=== PATIENT | female | born 1945 | race Caucasian/White ===

== ENCOUNTER 2017-10-02 14:52 | Outpatient (CLI) | payer MEDICARE | END 2017-10-02 14:53 | disposition home or self-care (01) | LOC: BICMAMMO 14:52 | PROVIDERS: ATTEND Internal Medicine Hematology & Oncology | DX: Z08 Encounter for follow-up examination after completed treatment for malignant neoplasm (principal); N64.89 Other specified disorders of breast; N63.20 Unspecified lump in the left breast, unspecified quadrant; N63.10 Unspecified lump in the right breast, unspecified quadrant; Z85.3 Personal history of malignant neoplasm of breast | CPT/HCPCS: 77066; G0279 ==

== ENCOUNTER 2018-03-28 04:30 | Observation (INO) | payer MEDICARE, OTHER ==
[2018-03-28 06:09] LABS: Troponin I Less than 0.010 ng/mL (< 0.028)
[2018-03-28] MEDS ORDERED: Acetaminophen 500 MG TAB ONE (06:10)
[2018-03-28 07:04] VITALS: BMI 38.5
--- NOTE | 2018-03-28 08:25 | CT ---
PRELIMINARY REPORT/[facility]/EMERGENTY AFTER-HOURS PROCEDURE CT Angiography Chest With Intravenous Contrast EXAM DATE/TIME: 03/28/2018 5:20 AM CLINICAL HISTORY: 73 years old, female; Pain; Chest pain; Patient HX: Patient presents for evaluation of chest pain TECHNIQUE: Axial computed tomographic angiography images of the chest with intravenous contrast using CT angiogr aphy protocol. MIP reconstructed images were created and reviewed. COMPARISON: No relevant prior studies available. FINDINGS: Pulmonary arteries: The ascending aorta at the level of the right pulmonary artery measures 3 cm. The main pulmonary artery measures 2.3 cm. No evidence of acute pulmonary embolism up to the subsegmenta l level. Aorta: Normal. No aortic aneurysm. No aortic dissection. Lungs: Mild atelectasis is seen in both lung bases. A nodule measuring 3 mm is seen in the right lung base. A nodule measuring 2 mm is seen in the right lung base. Several nodules the largest measuring 5 mm are seen in the right lung base. Several nodules are noted in the left upper lobe the largest me asuring 4 mm. Pleural space: Normal. No pneumothorax. No pleural effusion. Heart: Coronary artery calcifications are noted. Bones/joints: Moderate degenerative changes affect the spine. Bilateral shoulder arthroplasty changes are seen. Soft tissues: Unremarkable. Lymph nodes: Unremarkable. No enlarged lymph nodes. Gallbladder and bile ducts: Cholecystectomy clips are seen. Kidneys and ureters: There is a simple cyst in the lower pole of the right kidney measuring 1.3 cm. IMPRESSION: 1. No evidence of acute pulmonary embolism upto the subsegmental level. 2. Several nodules in both lungs the largest measuring 5 mm. No followup study is recommended if the patient is at low risk. An optional follow up study can be obtained in 12 months if the patient is at high risk. Thank you for allowing us to participate in the care of your patient. Dictated and Authenticated by: Gladis Brady MD 03/28/2018 6:51 AM Central Time ([place] & [place]) FINAL REPORT CT PULMONARY ANGIOGRAM WITH IV CONTRAST AND 3D POSTPROCESSING: I agree with the preliminary report given by Dr. Gladis Brady of [facility]. POS: [facility]
[2018-03-28 08:58] LABS: Troponin I 0.012 ng/mL (< 0.028)
[2018-03-28] MEDS ORDERED: Ondansetron PF 4 MG/2 ML Vial IVP PRN (10:25)
[2018-03-28] MEDS ORDERED: Lisinopril 2.5 MG TAB PO SCH (10:45)
[2018-03-28] MEDS: Acetaminophen 325 MG TAB PO PRN ×2 (10:53→21:36)
--- NOTE | 2018-03-28 11:56 | HP ---
DATE OF ADMISSION: 03/28/2018 PRIMARY CARE PHYSICIAN: Dr. Nuno CHIEF COMPLAINT: Chest pain. HISTORY OF PRESENT ILLNESS: Ms. Grove is a pleasant 73-year-old female with past medical history of hypertension, hyperlipidemia and breast cancer. She had taken herself to the ER in [place] and was later transferred via EMS to [facility] for further workup for her chest pain symptoms. She was also complaining of some shortness of breath that had started late last night, sh e was awoken in her sleep around midnight and pain lasted until about 2:00 a.m. She denies any nausea , vomiting or diarrhea. No abdominal pain. She was found to have an initial elevated blood pressure of 182/96. She was given nitro sublingual and aspirin 325 mg; however, showed little improvement of her chest pain. She states symptoms came on suddenly and chest pain does radiate to left scapula. S he denies any cough, fever, or chills. No recent travel and no other symptoms at this time. PAST MEDICAL HISTORY: She reports history of hyperlipidemia, hypertension and breast cancer. PAST SURGICAL HISTORY: Bilateral knee replacements, bilateral shoulder replacements, and lumpectomy right breast. PAST PSYCHIATRIC HISTORY: Does include history of anxiety and depression. SOCIAL HISTORY: She denies any alcohol use, drug use or smoking history. FAMILY HISTORY: Denies any family related history. REVIEW OF SYSTEMS: Reports left-sided chest pain and shortness of breath, chest pain does refer to l eft scapula, reports elevated blood pressure along with headache. All other review of systems review ed and negative at this time unless stated in the H&P. ALLERGIES: No known drug allergies noted. CURRENT HOME MEDICATIONS: 1. Aspirin 81 mg daily. 2. Lisinopril 2.5 mg daily. 3. Atorvastatin 10 mg daily. 4. Anastrozole 1 mg once daily. PHYSICAL EXAMINATION: VITAL SIGNS: BP 180/79, pulse 77, respirations 16, temperature 98.6, O2 saturations 94% on room air. GENERAL: The patient is alert and oriented x3 with mild acute distress due to chest pain. HEAD: Normocephalic, atraumatic. EYES: Pupils are round and reactive to light. Extraocular muscles intact. ENT: Oropharynx is within normal limits. Moist mucous membranes. No oral lesions noted. No pharyn geal erythema or exudates. NECK: Supple, no JVD, no thyromegaly, no carotid bruit. LUNGS: Clear to auscultation bilaterally without wheezes, rhonchi, or rales. CARDIOVASCULAR: Positive S1, S2, regular rate and rhythm, left-sided chest pain, nonreproducible. ABDOMEN: Soft, nontender, nondistended. Bowel sounds present. BACK: Full range of motion, no CVA tenderness. EXTREMITIES: Strength 5+ bilaterally upper and lower extremities. Range of motion normal. No edema noted. NEUROLOGIC: Moves all 4 limbs. No focal deficits noted. Speech is normal. PSYCHIATRIC: Normal mood and affect. LABORATORY DATA AND DIAGNOSTIC IMAGING: WBC 6.9, RBC 4.53, hemoglobin 14.5. PT 12.8, INR 0.9, PTT 2 3.9, sodium 142, potassium 4.2, creatinine 0.99. Troponin less than 0.10 X1. BNP 124, lipase 20. T SH 1.43. Glucose 153. D-dimer 0.47. However, CTA of chest showed no acute PE. ASSESSMENT AND PLAN: 1. Chest pain, etiology uncertain. We will rule out cardiogenic causes with serial troponin, negati ve x1. We will obtain stress test and echocardiogram. We will continue on home medications includin g lisinopril for blood pressure. 2. Hypertension, continue home lisinopril 2.5 mg daily, add IV hydralazine 10 mg as needed for hyper tension. Monitor vital signs and symptoms closely with further management pending the patient's prog ress. 3. Hyperlipidemia. Continue home dose of atorvastatin. 4. History of breast cancer, invasive micropapillary carcinoma, continue symptomatic treatment. The patient is to follow up with primary oncologist, she has a history of lumpectomy. 5. Deep venous thrombosis prophylaxis with Lovenox daily. 6. Gastrointestinal prophylaxis with Protonix 40 mg p.o. daily. 7. Code status. The patient will remain FULL CODE. DISPOSITION: The patient will be admitted under observation status and will undergo workup for chest pain, rule out. Further disposition pending patient progress and workup results.
[2018-03-28] MEDS ORDERED: ISOVUE-370 76%-LOCM 1 ML ONE (13:27)
--- NOTE | 2018-03-28 14:35 | NM ---
CARDIAC SPECT: CLINICAL HISTORY: 73-year-old female with chest pain, hypertension, and dyslipidemia. TECHNIQUE: A myocardial perfusion scan was performed using the single isotope one day protocol with technetium-9 9m sestamibi. 9 mCi were injected intravenously for the rest exam followed by 29 mCi for the stress e xam. Pharmacologic stress with Adenosine was monitored and interpreted by Dr. Lehman. FINDINGS: Homogeneous tracer distribution is seen in the myocardial segments on stress and rest images without fixed or reversible defects. GATED SPECT LVEF: 64%. WALL MOTION EXAM: Normal. IMPRESSION: Normal exam. POS: [facility]
[2018-03-28] MEDS: hydrALAZINE 20 MG/ML VIAL SLOW IVP PRN (17:19)
[2018-03-28] MEDS ORDERED: Atorvastatin Calcium 10 MG TAB PO SCH (21:00)
[2018-03-29 04:33] LABS: #Basophils 0.1 thou/uL (0.0-0.2); #Eosinphils 0.2 thou/uL (0.0-0.7); #Lymphocytes 2.2 thou/uL (1.20-3.40); #Monocytes 0.5 thou/uL (0.11-0.59); #Neutrophils 3.1 thou/uL (1.40-6.50); %Basophils 1.4 % (0.0-1.0); %Eosinophils 3.3 % (0.0-10.0); %Lymphocytes 35.9 % (21.0-51.0); %Monocytes 7.7 % (0.0-10.0); %Neutrophils 51.7 % (42.0-75.0); Hemoglobin 14.5 g/dL (12.0-16.0); Mean Corpuscular HGB CONC 33.5 g/dL (32.0-36.0); Mean Corpuscular Hemoglobin 32.7 pg (27.0-31.0); Mean Corpuscular Volume 97.8 fL (78.0-98.0); Mean Platelet Volume 8.7 fL (7.4-10.4); Platelet Count 245 thou/uL (130-400); RBC Distribution Width 11.7 % (11.5-14.5); Red Blood Cell (RBC) Count 4.43 mill/uL (4.20-5.40)
[2018-03-29 04:50] LABS: Anion Gap 14 mmol/L (10-20); BUN (Urea Nitrogen) Less than 4 mg/dL (9.8-20.1); Calc. Creatinine Clearance 149 mL/min (70-130); Carbon Dioxide 24 mmol/L (23-31); Chloride 106 mmol/L (98-107); Estimated GFR-MDRD Greater than 90; Glucose 157 mg/dL (83-110); Potassium 3.8 mmol/L (3.5-5.1); Sodium 140 mmol/L (136-145)
[2018-03-29] MEDS: hydrALAZINE 20 MG/ML VIAL SLOW IVP PRN (05:24)
[2018-03-29] MEDS: Acetaminophen 325 MG TAB PO PRN (06:20)
[2018-03-29 08:09] VITALS: BP 145/67; TEMP 98
[2018-03-29] MEDS ORDERED: Amlodipine 5 MG TAB PO SCH (09:00)
[2018-03-29] MEDS ORDERED: Lisinopril 5 MG TAB PO SCH (09:00)
[2018-03-29] MEDS ORDERED: Enoxaparin Sodium 40 MG/0.4 ML SYRINGE SC SCH (09:00)
[2018-03-29] MEDS ORDERED: Lisinopril 2.5 MG TAB PO SCH (09:00)
--- NOTE | 2018-03-29 10:42 | DIS ---
DATE OF ADMISSION: 03/28/2018 DATE OF DISCHARGE: 03/29/2018 DISCHARGE DIAGNOSES: 1. Chest pain, noncardiac, resolved. 2. Hypertension, stable. 3. Hyperlipidemia, stable. 4. History of breast cancer, stable. CONSULTATIONS: None. PERTINENT LABORATORY AND DIAGNOSTIC FINDINGS: WBC 6.0, RBC 4.43, hemoglobin 14.5. Sodium 140, potas sium 3.8, creatinine 0.60, glucose 157. Troponin less than 0.010 x2. Hemoglobin A1c 6.2. BNP 124. TSH 1.43. Lipid panel unremarkable. PT 12.8, INR 0.9, PTT 23.9. D-dimer 0.47. CT of the chest showed no evidence of acute pulmonary embolism; however, did show several nodules in both lungs with the largest measuring 5 mm, it was recommended the patient obtain repeat imaging in 1 2 months for recheck. A stress test was normal. Echocardiogram showed left ventricular ejection fraction of 60-65% with gr ann-marie I diastolic dysfunction. HOSPITAL COURSE: Ms. Grove is a pleasant 73-year-old female who was seen in [place] ED for her com plaints of chest pain, she was transported to [facility] via EMS. During singh sit, she had received a dose of aspirin 325 mg along with sublingual nitro. She had reported very li ttle improvement of her symptoms of chest pain. She has a history of hypertension, hyperlipidemia an d breast cancer. She had stated that her symptoms came on suddenly while she was sleeping and woke h er out of a deep sleep. She also stated she had mild symptoms of shortness of breath and headache. In the emergency department, it was found that the patient's blood pressure was elevated at 182/96, s he was restarted on her home medications which included aspirin 81 mg daily, lisinopril 2.5 mg daily, and Lipitor 10 mg daily. She was admitted under observation for chest pain rule out. Her D-dimer w as found to be slightly elevated at 0.47, however, CTA chest revealed no evidence of pulmonary emboli sm at that time. It did, however, show multiple nodules in both lungs with the largest measuring und er 5 mm, it was recommended that patient have a followup study in approximately 12 months. She also underwent a stress test which was found to be normal along with an echocardiogram which displayed an EF of 60-65% with grade I diastolic dysfunction. With the patient's elevated blood pressure, IV hydr alazine 10 mg was added as needed. She had tolerated this well, home dose of lisinopril was increase d to 5 mg daily, blood pressure did improve to 176/76, therefore, amlodipine 2.5 mg was added. Blood pressure did improve to 145/67 along with her symptoms of chest pain, shortness of breath and headac he. She was continued on lisinopril 5 mg along with amlodipine 2.5 mg daily and tolerating well for the remainder of hospital course. She was seen and examined prior to discharge. She had denied any symptoms of chest pain, shortness of breath or abdominal pain. Blood pressure remained stable at 145 /67, she was instructed to continue new dose of lisinopril 5 mg daily, along with amlodipine 2.5 mg d aily. She was instructed to follow up with her primary care physician, Dr. Nuno, in 1-2 weeks for further management of her blood pressure. She had verbalized her understanding and was found to be medically stable for discharge 03/29/2018. DISCHARGE MEDICATIONS: 1. Lisinopril 5 mg daily. 2. Amlodipine 2.5 mg daily. 3. Atorvastatin 10 mg daily. 4. Aspirin 81 mg daily. 5. Anastrozole 1 mg p.o. daily. FOLLOWUP: The patient is to follow up with her PCP, Dr. Nuno in 1-2 weeks. CONDITION ON DISCHARGE: Stable. ACTIVITY: No restrictions. DIET: Heart healthy. CODE STATUS: FULL CODE. DISPOSITION: Home on 03/29/2018.
== END 2018-03-29 11:52 | disposition home or self-care (01) ==
LOC: ERS 04:30 → 2SW 04:34
PROVIDERS: ADMIT Internal Medicine; ATTEND Internal Medicine
DX: R07.89 Other chest pain (principal); I10 Essential (primary) hypertension; E78.5 Hyperlipidemia, unspecified; Z85.3 Personal history of malignant neoplasm of breast; Z79.811 Long term (current) use of aromatase inhibitors; Z79.82 Long term (current) use of aspirin; Z79.899 Other long term (current) drug therapy; Z96.653 Presence of artificial knee joint, bilateral; Z96.611 Presence of right artificial shoulder joint; Z96.612 Presence of left artificial shoulder joint
CPT/HCPCS: 71275; 78452; 80048; 84484; 85025; 93017; 93306; 96372; 96374; 96376; 99285; A9500; G0378 ×2; 36415; J0153; J0360; J1650

== ENCOUNTER 2018-04-09 14:02 | Outpatient (CLI) | payer MEDICARE | END 2018-04-09 14:03 | disposition home or self-care (01) | LOC: BICMAMMO 14:02 | PROVIDERS: ATTEND Family Medicine | DX: R92.8 Other abnormal and inconclusive findings on diagnostic imaging of breast (principal); N64.89 Other specified disorders of breast; Z85.3 Personal history of malignant neoplasm of breast | CPT/HCPCS: 77065; G0279 ==

== ENCOUNTER 2018-10-15 14:30 | Outpatient (CLI) | payer MEDICARE ==
--- NOTE | 2018-10-15 15:02 | MMO ---
Bilateral MAMMO Bilat Diag [facility]. CLINICAL HISTORY: Patient is 73 years old and is seen for diagnostic exam. The patient has no family history of breast cancer. The patient has a history of Lumpectomy procedure revealed invasive moderately differntiated ductal carcinoma with micropapillary features in the right breast in Sep, 2016 and Ultrasound Guided Core Biopsy procedure revealed invasive ductal right breast carcinoma in Sep, 2016. The patient has a history of right Ultrasound Guided Core Biopsy in Sep, 2016. VIEWS: The views performed were: bilateral craniocaudal with tomosynthesis; bilateral mediolateral oblique with tomosynthesis; and bilateral mediolateral. FILMS COMPARED: The present examination has been compared to prior imaging studies performed at [facility] on 09/07/2016, 09/13/2016, 10/02/2017 and 04/09/2018. MAMMOGRAM FINDINGS: There are scattered fibroglandular densities. Finding 1: There is a post-surgical scar seen in the right breast. Finding 2: There are stable benign appearing densities seen in both breasts. Finding 3: There are stable benign appearing calcifications seen in both breasts. There are also vascular calcifications. IMPRESSION: FINDING 1: POST-SURGICAL SCAR IN THE RIGHT BREAST IS BENIGN. FINDING 2: STABLE BENIGN APPEARING DENSITIES IN BOTH BREASTS ARE BENIGN. FINDING 3: STABLE CALCIFICATIONS IN BOTH BREASTS ARE BENIGN. A ROUTINE FOLLOW-UP MAMMOGRAM IN 1 YEAR IS RECOMMENDED. THE RESULTS OF THIS EXAM WERE SENT TO THE PATIENT. ACR BI-RADS Category 2 - Benign finding MAMMOGRAPHY NOTE: 1. A negative mammogram report should not delay a biopsy if a dominant of clinically suspicious mass is present. 2. Approximately 10% to 15% of breast cancers are not detected by mammography. 3. Adenosis and dense breasts may obscure an underlying neoplasm.
== END 2018-10-15 14:31 | disposition home or self-care (01) ==
LOC: BICMAMMO 14:30
PROVIDERS: ATTEND Internal Medicine Hematology & Oncology
DX: Z08 Encounter for follow-up examination after completed treatment for malignant neoplasm (principal); Z85.3 Personal history of malignant neoplasm of breast; Z98.890 Other specified postprocedural states
CPT/HCPCS: 77066; G0279

== ENCOUNTER 2018-11-07 13:46 | Outpatient (CLI) | payer MEDICARE ==
--- NOTE | 2018-11-07 14:14 | BD ---
EXAM: DEXA bone density examination HISTORY: 73-year-old postmenopausal female for screening COMPARISON: None FINDINGS: L1--bone mineral density 1.201 g/sq cm; T score 1.9 L2--bone mineral density 1.286 g/sq cm; T score 2.3 L3--bone mineral density 1.388 g/sq cm; T score 2.8 L4--bone mineral density 1.396 g/sq cm; T score 3.0 Total L1-L4--bone mineral density 1.319 g/sq cm; T score 2.5 Left femoral neck--bone mineral density0.897; T score 0.4 Total proximal left femur--bone mineral density 1.145; T score 1.7 IMPRESSION: Normal bone mineral density.
== END 2018-11-07 13:47 | disposition home or self-care (01) ==
LOC: BICMAMMO 13:46
PROVIDERS: ATTEND Internal Medicine Hematology & Oncology
DX: Z13.820 Encounter for screening for osteoporosis (principal); C50.111 Malignant neoplasm of central portion of right female breast; T38.6X5A Adverse effect of antigonadotrophins, antiestrogens, antiandrogens, not elsewhere classified, initial encounter
CPT/HCPCS: 77080

== ENCOUNTER 2019-12-08 14:16 | Outpatient (CLI) | payer MEDICARE ==
--- NOTE | 2019-12-08 15:47 | MMO ---
Bilateral MAMMO Bilat Diag [facility]. CLINICAL HISTORY: Patient is 74 years old and is seen for diagnostic exam. The patient has no family history of breast cancer. The patient has a history of lumpectomy procedure revealed invasive moderately differntiated ductal carcinoma with micropapillary features in the right breast in Sep, 2016 and Ultrasound guided core biopsy procedure revealed invasive ductal right breast carcinoma in Sep, 2016. The patient has a history of right Ultrasound Guided Core Biopsy in Sep, 2016 and right Lumpectomy in 2017 - malignant. VIEWS: The views performed were: bilateral craniocaudal with tomosynthesis; bilateral mediolateral oblique with tomosynthesis; and bilateral mediolateral with tomosynthesis. FILMS COMPARED: The present examination has been compared to prior imaging studies performed at [facility] on 09/13/2016, 10/02/2017, 04/09/2018 and 10/15/2018. This study has been interpreted with the assistance of computer-aided detection. MAMMOGRAM FINDINGS: There are scattered fibroglandular densities. Benign calcifications are noted bilaterally. Nodularity is stable. There are stable right post-operative changes. There are no suspicious masses, suspicious calcifications, or new areas of architectural distortion. IMPRESSION: THERE IS NO MAMMOGRAPHIC EVIDENCE OF MALIGNANCY. A ROUTINE FOLLOW-UP MAMMOGRAM IN 1 YEAR IS RECOMMENDED. THE RESULTS OF THIS EXAM WERE SENT TO THE PATIENT. ACR BI-RADS Category 2 - Benign finding MAMMOGRAPHY NOTE: 1. A negative mammogram report should not delay a biopsy if a dominant of clinically suspicious mass is present. 2. Approximately 10% to 15% of breast cancers are not detected by mammography. 3. Adenosis and dense breasts may obscure an underlying neoplasm. Reported by: JEANCARLOS SAN MD Electonically Signed: [id number]
== END 2019-12-08 14:17 | disposition home or self-care (01) ==
LOC: BICMAMMO 14:16
PROVIDERS: ATTEND Internal Medicine Hematology & Oncology
DX: Z08 Encounter for follow-up examination after completed treatment for malignant neoplasm (principal); Z85.3 Personal history of malignant neoplasm of breast
CPT/HCPCS: 77066; G0279

== ENCOUNTER 2020-02-17 11:40 | Outpatient (CLI) | payer MEDICARE ==
[~2020-02-17 11:40] MED LIST: Magnevist 469MG/ML 20 ML VIAL ONE
--- NOTE | 2020-02-17 13:59 | MRI ---
Exam: Lumbar spine MRI with and without contrast HISTORY: Breast cancer. Repeated falls. Difficulty walking and standing. COMPARISON: None. FINDINGS: Overall there is appropriate T1 marrow signal intensity of the lumbar vertebra. Lumbar spine vertebra l body heights are maintained. There is no fracture. There are type II Modic changes at L1-L2 and L2-L3. Associated anterior osteophytes. There are type I Modic changes at L3-L4 with associated enhan cement of the endplate. There is no abnormal enhancement with regards to the associated disc space. There is no abnormal enhancement of the paraspinal muscles or solid organs. There is a cyst in the up per pole of the right kidney. Conus medullaris terminates at the upper aspect of L1. There is rightward curvature of the lumbar spine. T12-L1: Desiccation with mild loss of disc space height. Broad-based disc bulge abuts the thecal sac. No significant central canal stenosis. Patent bilateral neural foramina. L1-L2: Desiccation with moderate loss of disc space height. Broad-based disc bulge results in moderat e central canal stenosis. Mild right and moderate left neural foraminal narrowing. L2-L3: Disc desiccation with severe loss of disc space height. Broad-based disc bulge, ligamentum fla vum thickening and facet hypertrophy result in severe central canal stenosis. Moderate to severe right and moderate to severe left neural foraminal narrowing. L3-L4: Disc desiccation with moderate loss of disc space height. Broad-based disc bulge, ligamentum f lavum thickening and facet hypertrophy result in severe central canal stenosis. There is fluid in both facet joints. Moderate to severe right and left neural foraminal narrowing. L4-L5: Disc desiccation without significant loss of disc space height. Broad-based disc bulge, ligame ntum flavum thickening and facet hypertrophy result in mild stenosis of the thecal sac. Partial obscuration of the traversing right L5 nerve root secondary to narrowing of the subarticular zone fro m disc material and posterior element hypertrophy. Moderate to severe right and [id number] left neural foraminal narrowing. L5-S1: Disc desiccation without significant loss of disc space height. Broad-based disc bulge. No sig nificant central canal stenosis. Bilateral facet hypertrophy. Moderate to severe bilateral foraminal narrowing due to disc material and posterior element hypertrophy. Postcontrast images do not demonstrate any abnormal enhancement of the vertebral bodies. No abnormal enhancement within the thecal sac including the cauda equina and conus medullaris. IMPRESSION: 1. Extensive degenerative changes of the lumbar spine as described above. There are type I Modic lu ges and type II Modic changes at multiple disc spaces. 2. Severe central canal stenosis at L3-L4 and L4-L5. 3. Significant multilevel neural foraminal narrowing as detailed above. 4. No MR evidence of osseous metastases or abnormal enhancement within the thecal sac. Transcribed Date/Time: 02/17/2020 2:20 PM
== END 2020-02-17 11:41 | disposition home or self-care (01) ==
LOC: BICMRI 11:40
PROVIDERS: ATTEND Internal Medicine Hematology & Oncology
DX: R26.2 Difficulty in walking, not elsewhere classified (principal); C50.111 Malignant neoplasm of central portion of right female breast; R29.6 Repeated falls; R29.898 Other symptoms and signs involving the musculoskeletal system; M47.816 Spondylosis without myelopathy or radiculopathy, lumbar region; M48.061 Spinal stenosis, lumbar region without neurogenic claudication
CPT/HCPCS: 72158; 82565; A9579

== ENCOUNTER 2020-05-04 06:34 | Outpatient (CLI) | payer MEDICARE ==
[2020-05-04 12:23] LABS: Hemoglobin 13.9 g/dL (12.0-16.0); Mean Platelet Volume 10.9 fl (7.4-10.4); Platelet Count 266 10x3/uL (130-400); RBC Distribution Width 12.1 % (11.5-14.5); Red Blood Cell (RBC) Count 4.34 10x6/uL (3.90-5.20); White Blood Cell (WBC) Count 7.8 10x3/uL (4.5-11.0)
[2020-05-04 12:37] LABS: PTT 22.8 sec (22.0-33.0); Prothrombin Time 10.8 sec (9.5-12.1)
[2020-05-04 21:56] LABS: SARS-CoV-2 MS2 Positive; SARS-CoV-2 N Gene Negative; SARS-CoV-2 S Gene Negative; SARS-CoV-2 by NAA Not Detected (NotDetected); SARS-CoV-2 orf1ab Negative
== END 2020-05-04 06:35 | disposition home or self-care (01) ==
LOC: LABBT 06:34
PROVIDERS: ATTEND Neurological Surgery
DX: Z01.812 Encounter for preprocedural laboratory examination (principal); M48.57XA Collapsed vertebra, not elsewhere classified, lumbosacral region, initial encounter for fracture; M48.07 Spinal stenosis, lumbosacral region; Z20.828 Contact with and (suspected) exposure to other viral communicable diseases
CPT/HCPCS: 85027; 85610; 85730; U0003; 87635

== ENCOUNTER 2020-05-04 11:15 | Inpatient (IN) | payer MEDICARE ==
--- NOTE | 2020-05-05 22:05 | HP ---
REASON FOR H AND P: Surgery on 05/07/2020. Case #[id number]. CHIEF COMPLAINT: Lower back and bilateral leg pain. HISTORY OF PRESENT ILLNESS: Perfecto is a 75-year-old female with one year of worsening leg symptoms. Pain, weakness, and paresthesias radiating to her bilateral (left greater than right) gluteal muscles, posterior thighs, feet, and all of her toes. She has to sleep on her stomach because the pain is so bad. She had 2 sessions of physical therapy with no lasting relief. Now she has to use a walker to help offload so she could walk further. She denies bladder or bowel dysfunction. REVIEW OF SYSTEMS: CONSTITUTIONAL: Patient denies fever, chills. ENT: Denies change in vision or hearing. CARDIAC: Denies chest pain, shortness of breath, diaphoresis. PULMONARY: Denies shortness of breath, cough, hemoptysis. GASTROINTESTINAL: Denies fecal incontinence, abdominal pain, nausea, vomiting, diarrhea, change in stool formation and consistency. GENITOURINARY: Denies urinary incontinence, trouble with urination, frequency of urination, bloody urine. SKIN: Denies skin rash, bruising, bleeding, skin masses. MUSCULOSKELETAL: As per history of present illness. NEUROLOGICAL: As per history of present illness. PSYCHOLOGICAL: As per history of present illness. PAST MEDICAL HISTORY: Hypertension, arthritis, high cholesterol, depression, right breast cancer (invasive ductal cancer 1.1 cm, margins negative, 0/1 nodes, ER/TX, HER-2/emeka negative). PAST SURGICAL HISTORY: Carpal tunnel, gallbladder, hysterectomy, shoulder replacement right in 2010, right TKR 02/05/2012, left reverse total shoulder 02/03/2014, left total knee replacement 10/05/2015, right breast lumpectomy. HOSPITALIZATIONS: As above surgeries. FAMILY HISTORY: Father of cancer. Mother of diabetes. SOCIAL HISTORY: Nonsmoker. Occasionally drinks wine. Denies illicit drug use. MEDICATIONS: 1. Aspirin 81 mg. 2. Lisinopril 5 mg. 3. Atorvastatin 10 mg. 4. Baby aspirin 81 mg. 5. Arimidex 1 mg. 6. Amlodipine 2.5 mg. ALLERGIES: NO KNOWN DRUG ALLERGIES. PHYSICAL EXAMINATION: VITALS: Weight 231 pounds. Height 68 inches. BMI 35.12. HEENT: Pupils are equal. Extraocular movements are intact. NECK: Soft, supple. No masses are noted. Range of motion is intact and nonpainful. NEUROLOGICAL: Awake, alert, and oriented x3. Memory, attention, fund of knowledge normal. Cranial nerves are grossly intact. Motor exam, diffuse weakness in the anterior tib affected on bilateral sides. Sensory exam, stocking distribution. Reflex exam, hypoactive, symmetric. IMAGING DATA: MRI of the L-spine, severe stenosis of L2-3, L3-4. Foraminal collapse at L5-S1. L4-5 foraminal stenosis. X-ray of the L-spine, flexion and extension stable. ASSESSMENT: 1. Spinal stenosis of lumbar region with neurogenic claudication. 2. 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 PLAN: 1. Laminectomy at L2-S1, L5-S1 TLIF. 2. Hold aspirin 1 week prior to surgery. May resume in one week after surgery. 3. Anesthesia clearance. 4. Preop labs, CBC, PT, PTT, INR, COVID-19. INFORMED CONSENT: We discussed the indications, risks, benefits, alternatives, and expected results from surgery. The risks discussed included, but were not limited to, bleeding, infection, CSF leak, nerve damage, weakness, incontinence, cauda equina injury, arachnoiditis, paralysis, ventilator dependency, wheelchair dependency, loss of vision, hardware misplacement, cardiopulmonary complications of anesthesia or . Long-term complications discussed included, but were not limited to, degeneration of surrounding disk and future surgery. She understands the risks and is willing to proceed. Job ID: [id number] [facility]
[2020-05-07] MEDS ORDERED: Bupivacaine PF 0.5% 30 ML VIAL ONE (06:12)
[2020-05-07] MEDS ORDERED: EPINEPHrine 1 MG/ML AMP ONE (06:12)
[2020-05-07] MEDS ORDERED: Thrombin 5000 UNITS/5 ML VIAL ONE (06:12)
[2020-05-07] MEDS ORDERED: Fentanyl 250 MCG/5 ML VIAL ONE (06:20)
[2020-05-07] MEDS ORDERED: Midazolam HCl 2 mg/2 ml Vial ONE (06:48)
[2020-05-07] MEDS ORDERED: Promethazine HCl 25 MG/ML VIAL IM PRN ×2 (07:36→12:37)
[2020-05-07] MEDS ORDERED: Acetaminophen 325 MG TAB PO PRN (07:36)
[2020-05-07] MEDS ORDERED: tiZANidine HCl 4 MG TAB PO PRN (07:36)
[2020-05-07] MEDS ORDERED: diphenhydrAMINE 25 MG CAP PO PRN (07:36)
[2020-05-07] MEDS ORDERED: Promethazine 25 MG TAB PO PRN (07:36)
[2020-05-07] MEDS ORDERED: Scopolamine 1.5 mg/72 hour Patch TD PRN (08:00)
[2020-05-07] MEDS ORDERED: Phenylephrine 10 MG/ML VIAL ONE ×2 (08:57→11:12)
[2020-05-07] MEDS ORDERED: PHENYLEPHRINE-NS 100 MCG/ML 10 ML SYRINGE ONE (10:19)
[2020-05-07] MEDS ORDERED: ePHEDrine 50 MG/ML VIAL ONE (10:19)
[2020-05-07] MEDS ORDERED: Ondansetron PF 4 MG/2 ML Vial ONE (10:19)
[2020-05-07] MEDS ORDERED: Dexamethasone 20 MG/5 ML VIAL ONE (10:19)
[2020-05-07] MEDS ORDERED: PROPOFOL 200 MG/20 ML VIAL ONE (10:19)
[2020-05-07] MEDS ORDERED: Vecuronium 10 MG VIAL ONE (10:19)
[2020-05-07] MEDS ORDERED: Rocuronium Bromide 10 MG/ML (10ML VIAL) ONE (10:19)
[2020-05-07] MEDS ORDERED: Lidocaine 1% PF 5 ML VIAL ONE (10:19)
[2020-05-07] MEDS ORDERED: SUGAMMADEX SODIUM 200 MG/2 ML VIAL ONE (12:26)
[2020-05-07] MEDS ORDERED: HYDROmorphone 2 MG/ML VIAL SLOW IVP PRN (12:37)
[2020-05-07] MEDS ORDERED: Promethazine HCl 25 MG/ML VIAL SLOW IVP PRN (12:37)
[2020-05-07] MEDS ORDERED: Ondansetron HCl/PF 4 MG/2 ML Vial IVP PRN (12:37)
[2020-05-07] MEDS ORDERED: Promethazine HCl 25 MG/ML VIAL ONE (13:33)
--- NOTE | 2020-05-07 13:59 | OP ---
DATE OF PROCEDURE: 05/07/2020 ASSISTANT FRONT OFFICE MANAGER: Keon Hinds PA-C PREOPERATIVE INDICATION: Treat pain and prevent neurological deterioration. PREOPERATIVE DIAGNOSES: Multilevel lumbar stenosis with neurogenic claudication, severe foraminal stenosis from collapse of the intervertebral disk at the lumbosacral interspace causing bilateral L5 radiculopathies. POSTOPERATIVE DIAGNOSES: Multilevel lumbar stenosis with neurogenic claudication, severe foraminal stenosis from collapse of the intervertebral disk at the lumbosacral interspace causing bilateral L5 radiculopathies. PROCEDURES PERFORMED: 1. Decompressive laminectomy with medial facetectomy and foraminotomy at L2-L3, L3-L4, L4-L5, L5-S1. 2. Transforaminal lumbar interbody arthrodesis, L5-S1. 3. Placement of intervertebral biomechanical device, L5-S1. 4. Pedicle screw and matias instrumentation, L5-S1. 5. Posterolateral arthrodesis, L5-S1. 6. Local morselized autograft, morselized allograft. PREOPERATIVE MEDICATION: Ancef 2 g IV. DRAIN NUMBER: Zero. DRAIN TYPE: None. DESCRIPTION OF PROCEDURE: The patient was brought to the operating room. General endotracheal anesthesia was induced. The patient was carefully positioned on the Deyvi frame with the appropriate padding for the chest and hips. A lateral fluoro radiograph was used to plan our incision. The lumbar skin was sterilely prepped and draped. We opened a midline incision with a 10 blade knife and we controlled bleeding with bipolar and monopolar cautery. We used monopolar cautery to dissect through subcutaneous tissues to the thoracodorsal fascia. We incised the fascia in the midline and reflected paraspinal muscles off the spinous process and the lamina of L2, L3, L4, L5, and S1. A self-retaining retractor was placed. A lateral fluoro radiograph confirmed the levels upon which we were operating. We carried our dissection over the facet joints at L4-L5 and L5-S1 to expose the sacral ala bilaterally and the L5 transverse processes bilaterally. We irrigated once again with bacitracin irrigation. We used an Adson rongeur to remove the spinous processes and Kerrison rongeur to fashion a laminectomy from L2-S1. We had to perform medial facetectomies on both sides to decompress the lateral recesses. We performed foraminotomies over the exiting nerve roots. The L5 nerve roots were particularly compressed the lumbosacral interspace due to collapse of the height of that disk. This necessitated interbody device to generate more vertical space between the pedicles. Therefore, we removed the entire facet joint on the right at L5-S1. Through this access trajectory, we got to the intervertebral disk in the foramen. We incised the disk and removed disk contents using curettes and rongeurs. We measured the height of the interspace with a bone rasp, 10 mm. A 10 mm PEEK intervertebral graft was brought into the field. This was loaded with demineralized bone matrix and morselized autograft. The autograft was morselized laminectomy bone, which was from soft tissue attachments, morcellized and added to demineralized bone matrix as our fusion substrate. The PEEK graft, loaded with a fusion substrate, was then advanced into the lumbosacral interspace under radiographic guidance to the appropriate depth. We turned our attention to pedicle screw instrumentation. Using bony anatomic landmarks, palpation of the medial portion of the pedicles and a lateral fluoro radiograph as our guide, we chose entry points for pedicle screws at L5 and S1 bilaterally. We drilled out our entry points and used a bone awl to advance through the pedicles into the vertebral bodies. A threaded tap was used through each trajectory. We probed the trajectories and found them completely encased in bone. We placed 6.5 mm diameter screws down the pedicles into the vertebral bodies. Between the heads of the screws, we placed the matias. We tightened caps over the rods using a torque/counter-torque mechanism with gentle compression across the interspace to keep the interbody graft in place. We irrigated copiously with bacitracin irrigation. We decorticated the transverse process of L5 bilaterally as well as the sacral ala. Over the decorticated bone, we left demineralized bone matrix, morselized autograft as our posterolateral fusion substrate. We irrigated the center of the wound once again with bacitracin irrigation. We treated the wound with vancomycin powder and we closed in anatomical layers. We applied sterile dressing. This was a clean case, no contamination. Job ID: [id number]
[2020-05-07] MEDS ORDERED: Fentanyl 100 MCG/2 ML VIAL ONE (14:01)
[2020-05-07 15:44] VITALS: BMI 39.2
[2020-05-07] MEDS: CEFAZOLIN 2 GM in Premix Bag 1 BAG IVPB SCH ×2 (16:51→21:25)
[2020-05-07] MEDS: Sodium Chloride 0.9% 1,000 ML IV SCH ×2 (16:51→21:30)
[2020-05-07] MEDS: Ezetimibe 10 MG TAB PO SCH (16:51)
[2020-05-07] MEDS: Atorvastatin Calcium 10 MG TAB PO SCH (16:51)
[2020-05-07] MEDS: Lisinopril 5 MG TAB PO SCH (16:51)
[2020-05-07] MEDS: Acetaminophen/Codeine 30-300mg Tablet PO PRN (17:17)
[2020-05-07] MEDS: Amlodipine 5 MG TAB PO SCH (20:28)
[2020-05-08] MEDS ORDERED: CEFAZOLIN 2 GM in Premix Bag 1 BAG IVPB SCH (05:30)
[2020-05-08] MEDS: glipiZIDE 5 MG TAB PO SCH (08:33)
[2020-05-08] MEDS: Ezetimibe 10 MG TAB PO SCH (08:33)
[2020-05-08] MEDS: Atorvastatin Calcium 10 MG TAB PO SCH (08:34)
[2020-05-08] MEDS: Lisinopril 5 MG TAB PO SCH (08:35)
[2020-05-08] MEDS ORDERED: FLU VACC QS2020-21(65YR UP)/PF 240 MCG/0.7 ML SYRINGE IM ONE (09:00)
[2020-05-08] MEDS: Sodium Chloride 0.9% 1,000 ML IV SCH (11:24)
[2020-05-08 12:09] LABS: #Lymphocytes 1.6 thou/uL (1.20-3.40); #Monocytes 0.7 thou/uL (0.11-0.59); %Basophils 0.4 % (0.0-1.0); %Eosinophils 0.4 % (0.0-10.0); %Lymphocytes 17.1 % (21.0-51.0); %Monocytes 7.8 % (0.0-10.0); %Neutrophils 74.3 % (42.0-75.0); Hemoglobin 11.2 g/dL (12.0-16.0); Mean Corpuscular HGB CONC 33.3 g/dL (32.0-36.0); Mean Corpuscular Hemoglobin 33.2 pg (27.0-31.0); Mean Corpuscular Volume 99.7 fL (78.0-98.0); Mean Platelet Volume 8.9 fL (7.4-10.4); Platelet Count 192 thou/uL (130-400); RBC Distribution Width 11.4 % (11.5-14.5); Red Blood Cell (RBC) Count 3.36 mill/uL (4.20-5.40); White Blood Cell (WBC) Count 9.5 thou/uL (4.8-10.8)
[2020-05-08 12:43] LABS: Anion Gap 15 mmol/L (10-20); BUN (Urea Nitrogen) 37 mg/dL (9.8-20.1); Calc. Creatinine Clearance 63 mL/min (70-130); Calcium 7.6 mg/dL (7.8-10.44); Carbon Dioxide 20 mmol/L (23-31); Chloride 107 mmol/L (98-107); Glucose 119 mg/dL (83-110); Potassium 3.5 mmol/L (3.5-5.1); Sodium 138 mmol/L (136-145)
--- NOTE | 2020-05-08 12:45 | PRG ---
DATE OF SERVICE: 05/08/2020 Ms. Grove is doing very well postoperative day 1 following multilevel lumbar laminectomy and L5-S1 fusion. She has excellent strength in her lower extremities and states her leg pain is improved compared to before surgery. We are making arrangements for inpatient rehab transfer at some point this weekend hopefully and assessing postoperative labs given the magnitude of her surgery. Job ID: [id number]
[2020-05-08] MEDS: traMADol HCl 50 MG TAB PO PRN ×2 (13:26→20:04)
[2020-05-08] MEDS: Amlodipine 5 MG TAB PO SCH (21:28)
[2020-05-09] MEDS: Sodium Chloride 0.9% 1,000 ML IV SCH ×2 (06:31→14:20)
[2020-05-09] MEDS: Atorvastatin Calcium 10 MG TAB PO SCH (08:51)
[2020-05-09] MEDS: glipiZIDE 5 MG TAB PO SCH (08:51)
[2020-05-09] MEDS: Lisinopril 5 MG TAB PO SCH (08:52)
[2020-05-09] MEDS: Ezetimibe 10 MG TAB PO SCH (08:52)
[2020-05-09] MEDS: Acetaminophen/Codeine 30-300mg Tablet PO PRN (10:46)
--- NOTE | 2020-05-09 11:02 | PRG ---
DATE OF SERVICE: 05/09/2020 Ms. Groev is postoperative day 2 following multilevel lumbar laminectomy and lumbar fusion. Her labs were all within normal limits with exception of mild renal insufficiency with creatinine elevation. We are treating this with IV fluids. This morning, she is sitting in a bedside chair, but states that she is in a significant amount of pain and has asked that should be moved back to the bed. Otherwise neurologically, she is intact and we will plan to continue to work toward transition to inpatient rehab. Job ID: [id number]
[2020-05-09] MEDS: Amlodipine 5 MG TAB PO SCH (20:00)
[2020-05-09] MEDS: traMADol HCl 50 MG TAB PO PRN (20:07)
[2020-05-10] MEDS: Sodium Chloride 0.9% 1,000 ML IV SCH ×2 (04:33→15:48)
[2020-05-10] MEDS: Acetaminophen/Codeine 30-300mg Tablet PO PRN ×3 (05:27→20:01)
--- NOTE | 2020-05-10 07:05 | PRG ---
DATE OF SERVICE: 05/10/2020 I saw Jody Grove in her hospital room this morning. Her back was quite sore this week and her energy level is low. She is able to stand and walk across the room, who got a bit lightheaded and had to sit back down. She has not made to the hallway to ambulate there yet. Overnight, I saw maximum temperature recorded of 98.8 degrees Fahrenheit. Blood pressure has been 130s to 180s. I do not find any new neurological deficits in the lower extremities. The preoperative hemoglobin was 11.2, I will check that today. We will ask Physical Therapy to work with Ms. Grove and will hope that she is able to participate in physical therapy enough to get into inpatient rehabilitation. Job ID: [id number]
[2020-05-10] MEDS: Lisinopril 5 MG TAB PO SCH (08:25)
[2020-05-10] MEDS: glipiZIDE 5 MG TAB PO SCH (08:25)
[2020-05-10] MEDS: Atorvastatin Calcium 10 MG TAB PO SCH (08:26)
[2020-05-10] MEDS: Ezetimibe 10 MG TAB PO SCH (08:26)
[2020-05-10] MEDS: Amlodipine 5 MG TAB PO SCH (19:46)
[2020-05-11] MEDS: Sodium Chloride 0.9% 1,000 ML IV SCH ×2 (06:11→18:46)
--- NOTE | 2020-05-11 08:06 | PRG ---
DATE OF SERVICE: 05/11/2020 I saw Ms. Grove on rounds this morning. She complains of some soreness in her back and difficulty getting around independently because of that soreness. She anticipates she is going to continue to get better from here, and I agree. She is interested in inpatient rehabilitation and I hope she is a candidate for that today. Among the electronically recorded vital signs, I do not see any fevers recorded. Blood pressures have been between the 130s and 150s. There is no new neurological deficit in the lower extremities. Ms. Grove feels lightheaded, so we will check a CBC. Hopefully, she is an inpatient rehabilitation candidate because she continues to progress each day. Hopefully, we will make it to the hallway today with physical therapy. Job ID: [id number] [facility]
[2020-05-11 08:09] LABS: #Basophils 0.1 thou/uL (0.0-0.2); #Eosinphils 0.2 thou/uL (0.0-0.7); #Lymphocytes 1.4 thou/uL (1.20-3.40); #Monocytes 0.7 thou/uL (0.11-0.59); #Neutrophils 7.2 thou/uL (1.40-6.50); %Basophils 0.6 % (0.0-1.0); %Eosinophils 2.5 % (0.0-10.0); %Monocytes 7.3 % (0.0-10.0); %Neutrophils 74.7 % (42.0-75.0); Hemoglobin 10.6 g/dL (12.0-16.0); Mean Corpuscular HGB CONC 33.2 g/dL (32.0-36.0); Mean Corpuscular Volume 99.5 fL (78.0-98.0); Mean Platelet Volume 8.9 fL (7.4-10.4); Platelet Count 197 thou/uL (130-400); RBC Distribution Width 11.4 % (11.5-14.5); White Blood Cell (WBC) Count 9.6 thou/uL (4.8-10.8)
[2020-05-11] MEDS: Ezetimibe 10 MG TAB PO SCH (08:41)
[2020-05-11] MEDS: Lisinopril 5 MG TAB PO SCH (08:41)
[2020-05-11] MEDS: Atorvastatin Calcium 10 MG TAB PO SCH (08:41)
[2020-05-11] MEDS: glipiZIDE 5 MG TAB PO SCH (08:42)
[2020-05-11] MEDS: Milk Of Magnesia 30 ML UDCUP PO PRN (08:51)
[2020-05-11] MEDS: Acetaminophen/Codeine 30-300mg Tablet PO PRN ×2 (11:51→18:49)
[2020-05-11] MEDS: Amlodipine 5 MG TAB PO SCH (20:19)
[2020-05-11] MEDS: Mag-Al 1200 mg/1200 mg/30 ML UDCUP PO PRN (21:56)
[2020-05-12] MEDS: Sodium Chloride 0.9% 1,000 ML IV SCH ×2 (06:22→19:47)
--- NOTE | 2020-05-12 08:00 | PRG ---
DATE OF SERVICE: 05/12/2020 I saw Ms. Grove in her hospital room this morning. She is walking farther and farther every day with physical therapy and looks forward to inpatient rehabilitation. She is a great candidate for it. In the last 24 hours, the maximum temperature I see is 99.3 degrees Fahrenheit. Blood pressures have been in the 140s to 150s. Ms. Grove feels better. She is moving better. Her neurological function is good. She can be transferred to rehab today. Job ID: [id number]
[2020-05-12] MEDS: Ezetimibe 10 MG TAB PO SCH (09:16)
[2020-05-12] MEDS: Atorvastatin Calcium 10 MG TAB PO SCH (09:16)
[2020-05-12] MEDS: Milk Of Magnesia 30 ML UDCUP PO PRN (09:16)
[2020-05-12] MEDS: glipiZIDE 5 MG TAB PO SCH (09:16)
[2020-05-12] MEDS: Lisinopril 5 MG TAB PO SCH (09:16)
[2020-05-12] MEDS: Acetaminophen/Codeine 30-300mg Tablet PO PRN (12:48)
[2020-05-12] MEDS: Amlodipine 5 MG TAB PO SCH (20:42)
[2020-05-12] MEDS: Mag-Al 1200 mg/1200 mg/30 ML UDCUP PO PRN (20:42)
--- NOTE | 2020-05-13 06:55 | PRG ---
DATE OF SERVICE: 05/13/2020 I saw Jody Grove in her hospital room this morning. She was hoping to be in rehab by now and I was hoping that for her as well. Yesterday, she walked farther with physical therapy than she has since her admission. She is making progress every day this week. Maximum temperature I see recorded is 99.2 degrees Fahrenheit. Blood pressures have been 130s to 160s. There is good neurological function in lower extremities. Ms. Grove is ready for transfer to rehab. Job ID: [id number] [facility]TDD
[2020-05-13] MEDS: Sodium Chloride 0.9% 1,000 ML IV SCH ×2 (09:42→23:58)
[2020-05-13] MEDS: Ezetimibe 10 MG TAB PO SCH (09:44)
[2020-05-13] MEDS: Atorvastatin Calcium 10 MG TAB PO SCH (09:44)
[2020-05-13] MEDS: glipiZIDE 5 MG TAB PO SCH (09:44)
[2020-05-13] MEDS: Lisinopril 5 MG TAB PO SCH (09:44)
[2020-05-13] MEDS: Acetaminophen/Codeine 30-300mg Tablet PO PRN ×2 (13:05→19:20)
[2020-05-13] MEDS: Mag-Al 1200 mg/1200 mg/30 ML UDCUP PO PRN (19:23)
[2020-05-13] MEDS: Amlodipine 5 MG TAB PO SCH (21:02)
[2020-05-14] MEDS: Acetaminophen/Codeine 30-300mg Tablet PO PRN (06:25)
[2020-05-14] MEDS: glipiZIDE 5 MG TAB PO SCH (08:41)
[2020-05-14] MEDS: Ezetimibe 10 MG TAB PO SCH (08:41)
[2020-05-14] MEDS: Lisinopril 5 MG TAB PO SCH (08:41)
[2020-05-14] MEDS: Atorvastatin Calcium 10 MG TAB PO SCH (08:41)
[2020-05-14 12:26] VITALS: BP 148/80; TEMP 98.1
--- NOTE | 2020-05-17 07:32 | PQF ---
CLINICAL DOCUMENTATION CLARIFICATION FORM: Dear : Mak Mcgrath Date / Time: 05/17/2020 07:31 Please exercise your independent, professional judgment in responding to the clarification form. Clinical indicators are provided on the bottom of this form for your review Please check appropriate box(s): [ ] Hypovolemic shock [ ] Hemorrhagic shock due to surgery [ ] Shock Unspecified [ ] Other diagnosis, please specify [ ] Unable to determine In addition, please specify: Present on Admission (POA): [ ] Yes [ ] No [ ] Unable to determine Physician Signature: Date/Time: For continuity of documentation, please document condition throughout progress notes and discharge summary. Thank You. To be completed by CDI/Coding staff for physician review: Present Clinical Indicators - Signs / Symptoms / Labs Results and Location in Medical Record [x] mild renal insufficiency PN 05/09 [x] weakness HP 05/07 [x] creatinine elevation PN 05/09 [x] lightheaded PN 05/11 [x] BUN=38 Creatinine=1.41 GFR=36 Laboratory 05/08 [x] BP: 05/07=97/57 05/08=93/51 05/0961=705/59 Vital Signs 05/07 [x] RBC=3.20 Hgb=10.6 Hct=31.8 Laboratory 05/11 Present Risk Factors Results and Location in Medical Record [x] 75 years old female HP 05/07 [x] HTN Anesthesia 05/07 [x] Morbid Obesity Anesthesia 05/07 [x] DM Anesthesia 05/07 Present Treatments Results and Location in Medical Record [x] Laboratory Monitoring Laboratory 05/08 [x] IVF AUG 06 [x] Epinephrine 1mg IV AUG 06 CDS/Aquatic Instructor Signature:Noelle Fontenot Phone #: [phone] Date/Time: 05/17/2020 This is a permanent part of the Medical Record [facility]
--- NOTE | 2020-05-17 07:35 | PQF ---
CLINICAL DOCUMENTATION CLARIFICATION FORM: Dear : Mak Mcgrath Date / Time: 05/17/2020 07:34 Please exercise your independent, professional judgment in responding to the clarification form. Clinical indicators are provided on the bottom of this form for your review Please check appropriate box(es): [ ] Acute Renal Failure (ARF) / Acute Kidney Injury (ERI) [ ] Acute Tubular Necrosis (ATN) [ ] Renal insufficiency only [ ] Other diagnosis, please specify: [ ] Unable to determine Physician Signature: Date/Time: For continuity of documentation, please document condition throughout progress notes and discharge summary. Thank You. To be completed by CDI/Coding staff for physician review: Present Clinical Indicators - Signs / Symptoms / Labs Results and Location in Medical Record [x] mild renal insufficiency PN 05/09 [x] weakness HP 05/07 [x] creatinine elevation PN 05/09 [x] lightheaded PN 05/11 [x] BUN=38 Creatinine=1.41 GFR=36 Laboratory 05/08 Present Risk Factors Results and Location in Medical Record [x] 75 years old female HP 05/07 [x] HTN Anesthesia 05/07 [x] Morbid Obesity Anesthesia 05/07 [x] DM Anesthesia 05/07 Present Treatments Results and Location in Medical Record [x] Laboratory Monitoring Laboratory 05/08 [x] IVF MAR 05/07 CDS/Travel Clerk Signature:Noelle Fontenot Phone #: [phone] Date/Time: 05/17/2020 This is a permanent part of the Medical Record [facility]
--- NOTE | 2020-05-17 07:42 | PQF ---
CLINICAL DOCUMENTATION CLARIFICATION FORM: Dear : Carlos Bermudez Date / Time: 05/17/2020 Please exercise your independent, professional judgment in responding to the clarification form. Clinical indicators are provided on the bottom of this form for your review Based on your clinical judgment, can you please specify etiology of patient s cardiac arrest? Please check appropriate box(es) to determine sequence of events: [ ] Acute NM [ ] Hypokalemia [ ] NSVT [ ] Other diagnosis ,please specify [ ] Unable to determine Physician Signature: Date/Time: For continuity of documentation, please document condition throughout progress notes and discharge summary. Thank You. To be completed by CDI/Coding staff for physician review: Present Clinical Indicators - Signs / Symptoms / Labs Results and Location in Medical Record [x] Cardiac arrest ED Notes 05/08 [x] Echocardiogram: Inferior infarct, possibly acute Echocardiogram 05/15 [x] unresponsive ED Notes 05/08 [x] EKG:ST depression ED Notes 05/08 [x] Most likely ventricular fibrillation arrest.it appears that most likely he has suffered an ST segment elevation NM HP 05/08 [x] cardiac arrest most likely secondary to ischemic CAD Consult 05/08 [x] Vfib arrest possibly prompted by initial NM or hypokalemia PN 05/10 Present Risk Factors Results and Location in Medical Record [x] HTN HP 05/08 [x] Smoker HP 05/08 [x] Acute NM HP 05/08 [x] Ventricular fibrillation HP 05/08 [x] Hypokalemia HP 05/08 [x] CMP PN 05/09 Present Treatments Results and Location in Medical Record [x] [facility] receiver/laborer 05/08 [x] Intubation with ventilation ED Notes 05/08 [x] Cardiology Consult Consult 05/08 [x] Heparin 1000ml IV MAR 05/08 [x] Dopamine 400mg IV MAR 05/08 CDS/Thermite Bomb Loader Signature: Noelle Almeidaandrea Fontenot Phone #: [phone] Date/Time: 05/17/2020 This is a permanent part of the Medical Record [facility]
--- NOTE | 2020-05-17 15:00 | DIS ---
DATE OF ADMISSION: 05/07/2020 DATE OF DISCHARGE: 05/14/2020 HOSPITAL COURSE: Ms. Grove is a 75-year-old female, who underwent a laminectomy at L2-S1 and L5-S1 TLIF. Following her surgery, she was transitioned to the med/surg floor, where her pain was well controlled with p.o. medications. She is tolerating a regular diet and voiding appropriately. She is otherwise doing well and ambulating easily in the hallways and is awaiting inpatient rehab approval from insurance. PHYSICAL EXAMINATION: Today, she is awake, alert, no acute distress. She has free active range of motion of all extremities. No focal motor weakness. No reflex asymmetry. Her incision is clean, dry, and intact. PLAN: We will plan to dismiss the patient to inpatient rehab once insurance approves. I have discussed home care precautions with her. CONDITION ON DISCHARGE: The patient had no emergencies. Condition was stable for discharge. MEDICATIONS: Home going medications were reviewed. FOLLOWUP: Followup arrangements made by our quality coordinator in the clinic and call to the patient. ACTIVITIES: Restrictions were reviewed in person. Wound care showers are acceptable. The patient should pat the incision dry, but not submerge under the surface of the body of water for one month. Job ID: [id number] MTDD
== END 2020-05-14 12:50 | disposition home or self-care (01) | DRG 454 ==
LOC: SURG A 05-07 05:48
PROVIDERS: ADMIT Neurological Surgery; ATTEND Neurological Surgery
PROC: 0SG30AJ Fusion of Lumbosacral Joint with Interbody Fusion Device, Posterior Approach, Anterior Column, Open Approach (ICD-10-PCS; principal; 2020-05-07)
PROC: 0SG3071 Fusion of Lumbosacral Joint with Autologous Tissue Substitute, Posterior Approach, Posterior Column, Open Approach (ICD-10-PCS; 2020-05-07)
PROC: 0SB40ZZ Excision of Lumbosacral Disc, Open Approach (ICD-10-PCS; 2020-05-07)
PROC: 01NB0ZZ Release Lumbar Nerve, Open Approach (ICD-10-PCS; 2020-05-07)
PROC: 3E033XZ Introduction of Vasopressor into Peripheral Vein, Percutaneous Approach (ICD-10-PCS; 2020-05-07)
DX: M48.062 Spinal stenosis, lumbar region with neurogenic claudication (principal); M48.56XA Collapsed vertebra, not elsewhere classified, lumbar region, initial encounter for fracture; M48.57XA Collapsed vertebra, not elsewhere classified, lumbosacral region, initial encounter for fracture; I10 Essential (primary) hypertension; M19.90 Unspecified osteoarthritis, unspecified site; E78.00 Pure hypercholesterolemia, unspecified; F32.9 Major depressive disorder, single episode, unspecified; C50.911 Malignant neoplasm of unspecified site of right female breast; E78.5 Hyperlipidemia, unspecified; E66.01 Morbid (severe) obesity due to excess calories; Z96.611 Presence of right artificial shoulder joint; Z96.653 Presence of artificial knee joint, bilateral; G47.30 Sleep apnea, unspecified; E11.9 Type 2 diabetes mellitus without complications; M54.16 Radiculopathy, lumbar region; Z68.39 Body mass index [BMI] 39.0-39.9, adult; Z90.710 Acquired absence of both cervix and uterus; Z79.82 Long term (current) use of aspirin; Z79.899 Other long term (current) drug therapy; Z01.812 Encounter for preprocedural laboratory examination; Z20.828 Contact with and (suspected) exposure to other viral communicable diseases; M48.07 Spinal stenosis, lumbosacral region
CPT/HCPCS: 36415; 36416; 76000; 80048; 85025; 85027; 85610; 85730; 86850; 86900; 86901; 87635; C1713; C1768; J0171; J0690; J1100; J2250; J2370; J2405; J2550; J2704; J3010; J3370; J3490; S0020; U0003

== ENCOUNTER 2020-12-16 13:14 | Outpatient (CLI) | payer MEDICARE | END 2020-12-16 13:15 | disposition home or self-care (01) | LOC: BICMAMMO 13:14 | PROVIDERS: ATTEND Internal Medicine Hematology & Oncology | DX: Z13.820 Encounter for screening for osteoporosis (principal); C50.111 Malignant neoplasm of central portion of right female breast; T38.6X5A Adverse effect of antigonadotrophins, antiestrogens, antiandrogens, not elsewhere classified, initial encounter; N95.8 Other specified menopausal and perimenopausal disorders | CPT/HCPCS: 77066; 77080; G0279 ==

== ENCOUNTER 2021-03-24 06:57 | Day surgery (SDC) | payer MEDICARE, OTHER ==
[2021-03-22 12:53] VITALS: BMI 36.5
[2021-03-24 09:57] VITALS: TEMP 98.4
[2021-03-24 09:59] VITALS: BP 136/82
== END 2021-03-24 10:20 | disposition home or self-care (01) ==
LOC: RAD 06:57 → EDSTATUS 08:00 → RAD 10:20
PROVIDERS: ATTEND Neurological Surgery
PROC: B02B1ZZ Computerized Tomography (CT Scan) of Spinal Cord using Low Osmolar Contrast (ICD-10-PCS; principal; 2021-03-24)
DX: M47.816 Spondylosis without myelopathy or radiculopathy, lumbar region (principal); M47.814 Spondylosis without myelopathy or radiculopathy, thoracic region; M47.897 Other spondylosis, lumbosacral region; M41.86 Other forms of scoliosis, lumbar region; M25.78 Osteophyte, vertebrae; M48.04 Spinal stenosis, thoracic region; M48.061 Spinal stenosis, lumbar region without neurogenic claudication; M48.07 Spinal stenosis, lumbosacral region; Z79.811 Long term (current) use of aromatase inhibitors; Z79.82 Long term (current) use of aspirin; Z79.84 Long term (current) use of oral hypoglycemic drugs; Z79.899 Other long term (current) drug therapy; Z98.1 Arthrodesis status
CPT/HCPCS: 62305; 72129; 72132

== ENCOUNTER 2022-01-03 10:36 | Outpatient (CLI) | payer MEDICARE | END 2022-01-03 10:37 | disposition home or self-care (01) | LOC: BICMAMMO 10:36 | PROVIDERS: ATTEND Internal Medicine Hematology & Oncology | DX: Z08 Encounter for follow-up examination after completed treatment for malignant neoplasm (principal); Z85.3 Personal history of malignant neoplasm of breast | CPT/HCPCS: 77066; G0279 ==

== ENCOUNTER 2022-12-30 10:55 | Emergency (ER) | payer MEDICARE ==
[2022-12-30] MEDS ORDERED: HYDROcodone/Acetaminophen 5/325 mg Tablet ONE (12:40)
[2022-12-30] MEDS ORDERED: Ketorolac Tromethamine 30 MG/ML VIAL ONE (12:40)
== END 2022-12-30 15:12 | disposition home or self-care (01) ==
LOC: ERS 10:55
DX: M25.552 Pain in left hip (principal); E78.00 Pure hypercholesterolemia, unspecified; E11.9 Type 2 diabetes mellitus without complications; I10 Essential (primary) hypertension; Z79.82 Long term (current) use of aspirin; Z79.899 Other long term (current) drug therapy
CPT/HCPCS: 96374; J1885

== ENCOUNTER 2023-02-05 11:17 | Outpatient (CLI) | payer MEDICARE | END 2023-02-05 11:18 | disposition home or self-care (01) | LOC: BICMAMMO 11:17 | PROVIDERS: ATTEND Internal Medicine Hematology & Oncology | DX: Z12.31 Encounter for screening mammogram for malignant neoplasm of breast (principal); Z85.3 Personal history of malignant neoplasm of breast; Z98.890 Other specified postprocedural states | CPT/HCPCS: 77063; 77067 ==

== ENCOUNTER 2025-02-09 13:06 | Outpatient (CLI) | payer OTHER | END 2025-02-09 13:07 | disposition home or self-care (01) | LOC: BICMAMMO 13:06 | PROVIDERS: ATTEND Internal Medicine Hematology & Oncology | DX: Z12.31 Encounter for screening mammogram for malignant neoplasm of breast (principal); Z85.3 Personal history of malignant neoplasm of breast; Z98.890 Other specified postprocedural states | CPT/HCPCS: 77063; 77067 ==